=== PATIENT | male | born 1950 | race Caucasian/White ===

== ENCOUNTER 2022-09-15 20:35 | Outpatient (CLI) | payer MEDICARE, SELFPAY ==
--- NOTE | 2022-09-17 08:54 | W.PM.SLEEP ---
Sleep Study Details Details Interpreting Provider: Mack Date of Sleep Study: 09/15/22 Sleep Study Details: STUDY TYPE:? Hospital-based with CPAP titration ? BMI:? Not recorded ORDERING PROVIDER:? Mack INDICATION:? Concerns about sleep apnea ? SLEEP SUMMARY:? 298.5 minutes total sleep time, efficiency 65.3, arousal index 29.7 RESPIRATORY SUMMARY:? Mean oxygen awake 95 asleep 94, 0.2 minutes oxygen between 80 and 88% AHI 23.6, RDI 37.9, REM AHI 25.9. Note that the entire diagnostic portion of the study was done in the supine position. CPAP titration was performed to a pressure of 11 decreasing AHI to 0 including nonsupine REM stage sleep. PERIODIC LIMB MOVEMENTS OF SLEEP:? Pretreatment index 0, post treatment index 27.8, index with arousal 9.1 CARDIAC:? Awake 56, sleep 53. No arrhythmias noted IMPRESSION:? Severe obstructive sleep apnea with an AHI of 23.6 and an RDI of 37.9. CPAP titration was successful in the lateral position at a pressure of 11. RECOMMENDATION: Would initiate AutoSet CPAP at a pressure of 6-17 with close follow-up.
== END 2022-09-15 20:36 | disposition home or self-care (01) ==
LOC: SLEEP 20:36
PROVIDERS: PCP Family Medicine; Visit Provider Otolaryngology
DX: G47.33 Obstructive sleep apnea (adult) (pediatric) (principal)
CPT/HCPCS: 95811

== ENCOUNTER 2022-10-02 13:35 | Outpatient (RCR) | payer MEDICARE, SELFPAY ==
--- NOTE | 2022-10-02 15:02 | PT.OPEX ---
PT [place] [facility] Eval [facility] Eval Start: 10/02/22 12:53 Freq: Status: Active Protocol: Document 10/02/22 12:54 ENM (Rec: 10/02/22 14:32 ENM [id number]) E-signed By Chrissy Kahn DPT Physical Therapy Outpatient Evaluation Insurance Information Recert Due Date 12/25/22 Insurance Name Medicare B Medical Diagnosis osteoarthritis of right patellofemoral joint unilateral primary osteoarthritis, right knee Treating Diagnosis impaired balance, right knee pain, decreased hip strength Referring MD Faust Subjective Subjective Patient presents to PT for complaint of right knee pain that started after playing pickleball 3 weeks ago. Pains have improved since he saw Dr. Faust as he has been working on 2 knee stretches that he was given that day. He tries to walk 1.5-2 miles a day but this isn't bothersome. Initially it hurt going down hills but that isn't bad anymore. The knee isn't stiffening up on him like it did in the past. Denies any clicking, locking or giving out on him. He has not gone back to playing pickleball yet but plans to. He wants to be given exercises to perform in addition to what he has already been doing. PMHx: R meniscus surgery 03/05 Pain Comments none Current Work Status Retired Preferred Name [employer] Objective Other/Pertinent Objective ROM L knee and R knee WNL hip flexion WFL able to perform figure 4 B strength: knee extensors L 5/5 R 4+/5 hip abductors L 4/5 R 4-/5 SLS able to hold 10s on L no difficulty, R able to hold 5s with moderate instability palpation/joint mobility: no tenderness to palpation of knee joint no pain with overpressure posterior glide of right tibia gait/balance: no overt gait deviations Assessment Assessment/Impression Patient is a 72 year old male presenting to PT for right knee dysfunction that was painful 3 weeks ago after playing pickleball. Since then their pains have steadily improved. He no longer has discomfort with walking, driving or going down hills. He plans to start playing pickleball again soon. His goal for PT is to be given additional exercises aside from the 2 he has already been performing. Patient had no pain upon assessment with ROM, MMT, SLS or joint mobility with overpressure. He displays impairments in R SLS compared to contralateral side. As well as greater hip abductor weakness on R compared to L. He was given hip flexor and calf stretches to decrease tissue tension and strain on his knee with returning to sport. As well as hip strengthening and SLS for improved lower chain stability with playing pickleball. He benefits from skilled PT to address impairments stated above and decrease likelihood of reoccurrence of symptoms. Primary Functional Limitations none at this time but has not tried pickleball yet Plan of Care Rehabilitation Potential Good Physical Therapy Goals In 1-3 visits: 1. Patient will be IND with HEP and self management of symptoms 2. Patient will be able to hold SLS on R side for > 5s with minimal instability to decrease strain on R knee with activity 3. Patient will return to pickleball without any discomfort or difficulty for return to PLOF Coordination/Communication With Referral Source Treatment Plan/Direct Interventions Gait Training,Joint Mobilization,Manual Therapy, Neuromuscular Re-ed,Self-Care/ Home Management,Therapeutic Activities,Therapeutic Exercises Frequency/Duration 1x a week for 2-3 visits Patient Will Be Discharged From Therapy Completion of LTG(s), Independent w/HEP Evaluation Billing Untimed Code Treatment Minutes 21 Complexity Low Certification Information Initial Certification Date 10/02/22 Ending Certification Date 12/25/22 Provider Signature Shows Agreement With POC & Medical Necessity Physician Signature & Date Requested Please Sign/Date Here Physician Comment/Change : Physician NPI Number #
== END 2022-11-25 14:32 | disposition home or self-care (01) ==
PROVIDERS: PCP Family Medicine; Visit Provider Orthopaedic Surgery
DX: M17.11 Unilateral primary osteoarthritis, right knee (principal); R26.81 Unsteadiness on feet; M25.561 Pain in right knee; R53.1 Weakness; Z51.89 Encounter for other specified aftercare
CPT/HCPCS: 97110; 97161

== ENCOUNTER 2024-08-26 07:25 | Day surgery (SDC) | payer MEDICARE, SELFPAY ==
[2024-08-26] VITALS (13 sets, daily range): BP systolic 90–144; BP diastolic 56–97; PULSE 42–55; RESP 10–20; TEMP 36.4–37; O2SAT 96–99; BMI 31.2
[2024-08-26] MEDS: SODIUM CHLORIDE 0.9 % (FLUSH) 10 ML SYRINGE IVF (07:45)
[2024-08-26] MEDS: LACTATED RINGERS 1000 ML 1,000 ML 100 ML IV (07:45)
[2024-08-26] MEDS: CEFAZOLIN 1 GM inj IVP (09:51)
[2024-08-26] MEDS: BUPIVACAINE 0.25% 30 ML INJECTION (10:15)
--- NOTE | 2024-08-26 10:18 | P.ANES_ITS ---
Anesthesia Charges Start Date/Time Anesthesia Start Date: 08/26/24 Anesthesia Start Time: 09:25 Stop Date/Time Anesthesia Stop Date: 08/26/24 Anesthesia Stop Time: 10:29 Summary Extremes of Age - Over 70 or under 1: MDA Coding CPT Codes CPT Codes: ANESTH KNEE JOINT SURGERY - 43110 ([id number]) P2 - PATIENT W/MILD SYST DISEASE, QK - COW TESTER 2-4 CNCRNT ANES PROC, QX - LINE REPAIRER SVC W/ MD MED DIRECTION Additional Codes: Summary - Extremes of Age - Over 70 or under 1: MDA ([id number])
--- NOTE | 2024-08-26 10:18 | W.ANESCHARGE ---
Anesthesia Charges Start Date/Time Anesthesia Start Date: 08/26/24 Anesthesia Start Time: 09:25 Stop Date/Time Anesthesia Stop Date: 08/26/24 Anesthesia Stop Time: 10:29 Summary Extremes of Age - Over 70 or under 1: MDA Coding CPT Codes CPT Codes: ANESTH KNEE JOINT SURGERY - 59820 ([id number]) P2 - PATIENT W/MILD SYST DISEASE, QK - BRIQUETTE MACHINE OPERATOR HELPER 2-4 CNCRNT ANES PROC, QX - MAGAZINE WORKER SVC W/ MD MED DIRECTION Additional Codes: Summary - Extremes of Age - Over 70 or under 1: MDA ([id number])
--- NOTE | 2024-08-26 10:20 | P.ORPRC_ITS ---
Procedure Note Date of procedure: 08/26/24 Procedure: PREOPERATIVE DIAGNOSIS: Right knee medial and lateral meniscus tear POSTOPERATIVE DIAGNOSIS: Right knee lateral meniscus tear NAME OF OPERATION: Right knee arthroscopic partial lateral meniscectomy SURGEON: Khai Faust MD PENSION ADMINISTRATOR: Leslie Sandoval PA-C ANESTHESIA: Spinal ESTIMATED BLOOD LOSS: 0 mL COMPLICATIONS: None SPECIMENS: None DRAINS: None PREOPERATIVE ANTIBIOTICS: Ancef 2 gram INDICATIONS: The patient is a 74-year-old with a history of right knee lateral pain. MRI scan is consistent with a lateral meniscus tear. Despite appropriate nonoperative management, including activity modification, antiinflammatories, [id number] pain medication, bracing, physical therapy, and injections they continue to have pain and disability. Operative intervention was offered. The risks, benefits and expected outcomes were discussed in detail. These included but were not limited to: Infection, bleeding, injury to blood vessel or nerve, venous thromboembolism. All questions were answered to their s atisfaction. PROCEDURE: Spinal anesthesia was administered. The patient was placed supine on the operating room table. The right lower extremity was prepped and draped in the usual sterile fashion. The limb was exsanguinated with the Luis Manuel bandage. The pneumatic tourniquet was inflated to 300 mmHg. A standard anterolateral portal was established. The arthroscope was introduced. The working portal was established anteromedially. Diagnostic arthroscopy was performed with findings as follows: The suprapatellar pouch is normal. Articular surface on the patella shows diffuse grade 3 change. Articular surface on the trochlea shows diffuse grade 3 change. The medial gutter is normal. The medial compartment shows diffuse grade 2/3 change on the medial femoral condyle, grade 2 change on the medial tibial plateau. The medial meniscus has been partially previously resected. There is no significant persistent or recurrent tearing. The notch shows the ACL to be intact. The lateral compartment shows grade 1 change on both sides of the joint. The lateral meniscus has some undersurface tearing of the posterior horn. There is a partial radial tear at the posterior tibial attachment. This does not go to the capsule, but appears to be a partial tear of the posterior root. The lateral gutter is normal. The undersurface of the posterior horn of the lateral meniscus was debrided with the shaver. Care was taken not to detach the posterior horn. Unstable chondral flaps on the medial femoral condyle and patella were debrided with the shaver. Arthroscopic instruments were removed, the portal sites were Steri-Stripped closed, the knee was infiltrated with 30 mL of 0.25% Marcaine without epinephrine. A dry dressing was applied, the tourniquet was released. Sponge and needle counts were correct x 2. The patient tolerated the procedure well. There were no apparent complications. They were carefully transferred to the hospital bed and taken to the postanesthesia care unit in satisfactory condition. PLAN: The patient will be discharged to home. They may weightbear as tolerates. Range of motion will be unrestricted. They will follow up in the office next week for a wound check.
--- NOTE | 2024-08-26 10:28 | P.ANES_ITS ---
Anesthesia Charges Start Date/Time Anesthesia Start Date: 08/26/24 Anesthesia Start Time: 09:25 Stop Date/Time Anesthesia Stop Date: 08/26/24 Anesthesia Stop Time: 10:29 Summary Extremes of Age - Over 70 or under 1: FILING OR REGISTRY CLERK Coding CPT Codes CPT Codes: ANESTH KNEE JOINT SURGERY - 04255 ([id number]) P2 - PATIENT W/MILD SYST DISEASE, QK - SET UP OPERATOR 2-4 CNCRNT ANES PROC, QX - FILING OR REGISTRY CLERK SVC W/ MD MED DIRECTION Additional Codes: Summary - Extremes of Age - Over 70 or under 1: FILING OR REGISTRY CLERK ([id number])
--- NOTE | 2024-08-26 10:28 | W.ANESCHARGE ---
Anesthesia Charges Start Date/Time Anesthesia Start Date: 08/26/24 Anesthesia Start Time: 09:25 Stop Date/Time Anesthesia Stop Date: 08/26/24 Anesthesia Stop Time: 10:29 Summary Extremes of Age - Over 70 or under 1: TAX MAP TECHNICIAN Coding CPT Codes CPT Codes: ANESTH KNEE JOINT SURGERY - 98183 ([id number]) P2 - PATIENT W/MILD SYST DISEASE, QK - CLINICAL MENTAL HEALTH COUNSELOR 2-4 CNCRNT ANES PROC, QX - TAX MAP TECHNICIAN SVC W/ MD MED DIRECTION Additional Codes: Summary - Extremes of Age - Over 70 or under 1: TAX MAP TECHNICIAN ([id number])
== END 2024-08-26 12:04 | disposition home or self-care (01) ==
LOC: OR 07:27
PROVIDERS: PCP Family Medicine; Visit Provider Orthopaedic Surgery
PROC: (CPT 29870; principal; 2024-08-26 09:30)
DX: S83.271A Complex tear of lateral meniscus, current injury, right knee, initial encounter (principal)
CPT/HCPCS: 29881; 01400; 99100; J0665; J0690; J1100; J2250; J2405; J2704; J3010; J7120

== ENCOUNTER 2024-09-23 06:56 | Day surgery (SDC) | payer MEDICARE, SELFPAY ==
[2024-09-23] VITALS (12 sets, daily range): BP systolic 106–144; BP diastolic 68–88; PULSE 41–57; RESP 12–16; TEMP 36.2–36.9; O2SAT 94–100
[2024-09-23] MEDS: LACTATED RINGERS 1000 ML 1,000 ML 100 ML IV (07:20)
[2024-09-23] MEDS: SODIUM CHLORIDE 0.9 % (FLUSH) 10 ML SYRINGE IVF (07:34)
--- NOTE | 2024-09-23 10:24 | P.ANES_ITS ---
Anesthesia Charges Start Date/Time Anesthesia Start Date: 09/23/24 Anesthesia Start Time: 09:01 Stop Date/Time Anesthesia Stop Date: 09/23/24 Anesthesia Stop Time: 10:56 Summary Extremes of Age - Over 70 or under 1: MDA Coding CPT Codes CPT Codes: ANESTH KNEE JOINT SURGERY - 59716 ([id number]) P2 - PATIENT W/MILD SYST DISEASE, QK - SOAKING PIT OPERATOR 2-4 CNCRNT ANES PROC, QX - EXPLOSIVE OPERATOR BOMB SVC W/ MD MED DIRECTION Additional Codes: Summary - Extremes of Age - Over 70 or under 1: MDA ([id number])
--- NOTE | 2024-09-23 10:24 | W.ANESCHARGE ---
Anesthesia Charges Start Date/Time Anesthesia Start Date: 09/23/24 Anesthesia Start Time: 09:01 Stop Date/Time Anesthesia Stop Date: 09/23/24 Anesthesia Stop Time: 10:56 Summary Extremes of Age - Over 70 or under 1: MDA Coding CPT Codes CPT Codes: ANESTH KNEE JOINT SURGERY - 34848 ([id number]) P2 - PATIENT W/MILD SYST DISEASE, QK - PLISSE MACHINE OPERATOR 2-4 CNCRNT ANES PROC, QX - GLEASON GEAR GENERATOR SVC W/ MD MED DIRECTION Additional Codes: Summary - Extremes of Age - Over 70 or under 1: MDA ([id number])
--- NOTE | 2024-09-23 10:40 | PM.ORPRC ---
Procedure Note Date of procedure: 09/23/24 Procedure: PREOPERATIVE DIAGNOSIS: Right knee lateral meniscus root tear POSTOPERATIVE DIAGNOSIS: Right knee lateral meniscus root tear NAME OF OPERATION: Right knee arthroscopic lateral meniscus root repair, microfracture of the notch SURGEON: Khai Faust MD E COMMERCE SPECIALIST: DAREK Mcdowell ANESTHESIA: Spinal ESTIMATED BLOOD LOSS: 0 mL COMPLICATIONS: None SPECIMENS: None DRAINS: None PREOPERATIVE ANTIBIOTICS: Ancef 2 gram INDICATIONS: The patient is a 74-year-old with a history of right knee lateral pain. MRI scan is consistent with a lateral meniscus tear. On 08/26/2024 he underwent arthroscopic evaluation for presumed partial lateral meniscectomy. It was noted at that time that he had a lateral meniscus root tear, not a garden variety tear of the posterior horn of the lateral meniscus. He was not consented for root repair. Therefore, a limited debridement was done and we had a discussion in the office regarding his treatment options. Ultimately, he elected to proceed with lateral meniscus root repair. The risks, benefits and expected outcomes were discussed in detail. These included but were not limited to: Infection, bleeding, injury to blood vessel or nerve, venous thromboembolism. All questions were answered to their satisfaction. PROCEDURE: Spinal anesthesia was administered. The patient was placed supine on the operating room table. The right lower extremity was prepped and draped in the usual sterile fashion. The limb was exsanguinated with the Luis Manuel bandage. The pneumatic tourniquet was inflated to 225 mmHg. The previously placed anterolateral portal was established. The arthroscope was introduced. The previously placed working portal was established anteromedially. Diagnostic arthroscopy was performed with findings as follows: The suprapatellar pouch is normal. Articular surface on the patella shows diffuse grade 3 change. Articular surface on the trochlea shows diffuse grade 3 change. The medial gutter is normal. The medial compartment shows diffuse grade 2/3 change on the medial femoral condyle, grade 2 change on the medial tibial plateau. The medial meniscus has been partially previously resected. There is no significant persistent or recurrent tearing. The notch shows the ACL to be intact. The lateral compartment shows grade 1 change on both sides of the joint. The lateral meniscus has a radial tear at the posterior tibial attachment (root tear). The lateral gutter is normal. The root tear was completed to the capsule, with the shaver. The knee scorpion was used to pass a 2-0 FiberWire rip stop stitch in the posterior horn of the lateral meniscus. This was tied with a sliding, locking Araujo loop knot. Meniscus rasp was used to debride the footprint. The tibial drill guide was used over the footprint of the root. A stab incision over the anteromedial face of the tibia was placed. The drill was placed into the footprint. The Nitinol wire was brought out the anterolateral portal. This was exchanged for a FiberLink. The FiberLink was used to shuttle the Arthrex SutureLoc implant into the tibia. It was deployed just under the cortex of the tibia and then was set in this position and had excellent fixation. We then used scorpion to pass each limb of suture on our anchor just lateral to the rip stop stitch, 1 posterior and 1 more anterior. These were shuttled through the implant and then were tensioned. The knee was cycled several times and the sutures were then tensioned again. The probe was used to assess our repair which had excellent fixation. The power pick was used to microfracture the notch both medially and laterally. Arthroscopic instruments were removed, the portal sites were Steri-Stripped closed, the incision over the tibia was closed with 3-0 Vicryl and 4-0 Monocryl. A dry dressing was applied, the tourniquet was released. Sponge and needle counts were correct x 2. The patient tolerated the procedure well. There were no apparent complications. They were carefully transferred to the hospital bed and taken to the postanesthesia care unit in satisfactory condition. PLAN: The patient will be discharged to home. They will be protected weight-bearing on the lower extremity for 6 weeks postoperatively. Range of motion will be allowed from 0-90 degrees x 2 weeks then unrestricted range of motion. They will follow up in 2 weeks for a wound check.
--- NOTE | 2024-09-23 10:58 | P.ANES_ITS ---
Anesthesia Charges Start Date/Time Anesthesia Start Date: 09/23/24 Anesthesia Start Time: 09:01 Stop Date/Time Anesthesia Stop Date: 09/23/24 Anesthesia Stop Time: 10:56 Summary Extremes of Age - Over 70 or under 1: MARINE [employer] GR[employer]CE [employer]ANNERS Coding CPT Codes CPT Codes: ANESTH KNEE JOINT SURGERY - 56764 ([id number]) P2 - PATIENT W/MILD SYST DISEASE, QK - RAG SHREDDER 2-4 CNCRNT ANES PROC, QX - MARINE [employer] GROUND T[employer]CE PLANNERS SVC W/ MD MED DIRECTION Additional Codes: Summary - Extremes of Age - Over 70 or under 1: MARINE [employer] GR[employer]CE PLANNERS ([id number])
--- NOTE | 2024-09-23 10:58 | W.ANESCHARGE ---
Anesthesia Charges Start Date/Time Anesthesia Start Date: 09/23/24 Anesthesia Start Time: 09:01 Stop Date/Time Anesthesia Stop Date: 09/23/24 Anesthesia Stop Time: 10:56 Summary Extremes of Age - Over 70 or under 1: POCKET CLOSER Coding CPT Codes CPT Codes: ANESTH KNEE JOINT SURGERY - 56386 ([id number]) P2 - PATIENT W/MILD SYST DISEASE, QK - SPORTS BOOK SERVER 2-4 CNCRNT ANES PROC, QX - POCKET CLOSER SVC W/ MD MED DIRECTION Additional Codes: Summary - Extremes of Age - Over 70 or under 1: POCKET CLOSER ([id number])
--- NOTE | 2024-09-23 10:59 | P.NB_ITS ---
Nerve Block Nerve Block Time Seen by Provider: 10:45 Date Seen: 09/23/24 Type of block requested by surgeon for post-operative analgesia: geniculars Side: right Time out performed: Yes Verification of patient name: Yes Verification of date of : Yes Site marking: not applicable Name of person performing procedure: Gianni Continuous monitoring Was continuous monitoring of O2 sat, B/P, automotive airconditioning mechanic, recorded every 15 minutes?: Yes Procedure Checklist: sterile prep, needles and gloves Ultrasound guided. Images saved: No Medications given in 5ml increments after negative aspiration: Ropivicaine %: 0.5 mL: 12 Needle gauge: 22 Patient tolerated procedure well: Yes Block Charges Block Charge (with Pro Fee): Genicular Nerve Block Use of Ultrasound Machine for Block: No
--- NOTE | 2024-09-23 11:26 | SUR.PHASEI ---
patient met discharge criteria per anesthesia
== END 2024-09-23 12:27 | disposition home or self-care (01) ==
LOC: OR 06:59
PROVIDERS: PCP Family Medicine; Visit Provider Orthopaedic Surgery
PROC: (CPT 29882; principal; 2024-09-23 08:45)
DX: S83.281A Other tear of lateral meniscus, current injury, right knee, initial encounter (principal); G89.18 Other acute postprocedural pain
CPT/HCPCS: 29882; 29879; 01400; 64454; 99100; C1713; J0690; J1100; J2405; J2704; J2795; J3010; J7120